=== PATIENT | female | born 1935 | race Caucasian/White ===

== ENCOUNTER 2024-04-06 12:10 | Outpatient (REF) | payer MEDICARE, SELFPAY | END 2024-04-06 12:11 | disposition home or self-care (01) | LOC: HO.BBR 12:10 | PROVIDERS: PCP Internal Medicine; Visit Provider Internal Medicine Hematology | DX: D45 Polycythemia vera (principal) | CPT/HCPCS: 85018; 99195 ==

== ENCOUNTER 2024-06-09 09:57 | Outpatient (REF) | payer MEDICARE, SELFPAY ==
--- OUTSIDE RECORDS SUMMARY | 2024-06-09 10:51 | XMS_ITS | Continuity of Care Document ---
Author Organization [facility] for [facility] Address [address] [place] [id number]- Support Name Relationship Address Phone ABDIRASHID SOLER Personal Relationship Unknown U navailable CHEVALIER, ABDIRASHID Personal Relationship Unknown U navailable CHEVALIER, CARLITO Personal Relationship Unknown Un available CHEVALIER, CARLITO Personal Relationship Unknown Un available CHEVALIER, CARLITO Personal Relationship Unknown Un available CHEVALIER, CARLITO Personal Relationship Unknown Un available CHEVALIER, CARLITO spouse Unknown Unavailable CHEVALIER, C CARLITO Personal Relationship Unknown Unavailable CHEVALIER, CARLITO Personal Relationship Unknown Un available CHEVALIER, C CARLITO Personal Relationship Unknown Unavailable CHEVALIER, C CARLITO Personal Relationship Unknown Unavailable CHEVALIER, C CARLITO Personal Relationship Unknown Unavailable CHEVALIER, C CARLITO Personal Relationship Unknown Unavailable CHEVALIER, C CARLITO Personal Relationship Unknown Unavailable CHEVALIER, C CARLITO Personal Relationship Unknown Unavailable CHEVALIER, C CARLITO Personal Relationship Unknown Unavailable CHEVALIER, CARLITO Personal Relationship Unknown Un available CHEVALIER, C CARLITO Personal Relationship Unknown Unavailable Care Team Providers Care Subscription Agent Name Role Phone Parris NEWTON, Sherron [id number] [address] [address] Discharge Disposition: A-D/C Home Attending Physician: Candy NEWTON(Hem/Onc), Fredy Archer Admitting Physician: Candy NEWTON(Hem/Onc), Fredy Archer Referring Physician: Rosamaria Go NP Encounter Type: Disch Recurring OP Allergies, Adverse Reactions, Alerts No Known Allergies Immunizations Given and Recorded Vaccine Date Status Refusal Reason influenza virus vaccine, inactivated 1 01/31/12 Gi kermit influenza virus vaccine, inactivated 04/07/06 Give n Influenza Virus Vaccine (oldterm) 2 10/18/08 Given Diphth-Tetanus Toxoids Adsorbed(oldterm) 11/25/06 Given Influenza Inactive (IM) (oldterm) 03/22/05 Given Pneumococcal Vaccine (oldterm) 11/15/03 Given diphtheria-tetanus toxoids (DT) 05/19/96 Given 1Admin Note: VIS:12/11/10 2Admin Note: VIM 11/15/05 [employer] Medications Aspir 81 Oral Enteric Coated Tablet 1 tablet = 81 mg, By Mouth, Daily, # 30 tablet, 0 Refills, Maintenance, 10/13/14 10:37:54 AM EDT, ECTablet Start Date: 10/13/14 Status: Ordered Quantity: 30.0 Unit: tablet Repeat number: 1 atenolol 50 mg oral tablet 50 mg, 1, tablet, By Mouth, Daily, # 90 tablet, Refills 1, Tot. Refills 1, Maintenance, 12/30/23 11:12:00 AM EDT, Route to Pharmacy Electronically, [facility] #[id number], 156.1, cm, 11/07/23 15:40:00 EDT, Height Start Date: 12/30/23 Status: Ordered Quantity: 90.0 Unit: tablet Repeat number: 2 Hydrea 500 mg oral capsule 1 capsule = 500 mg, By Mouth, Every Friday, Friday and Friday, for 90 days, # 39 capsule, 4 Refills, Acute 08/12/24 4:34:00 PM EDT, 05/20/23 4:34:00 PM EST, [facility] #[id number], Partial fill upon patient request if the prescription is for a schedule II opioid drug., 156.8, cm, 01/03/23 11:24:00 EDT, Height, 58.4, kg, 12/28/21 8:56:00 EDT, Dry Weight Start Date: 05/20/23 Stop Date: 08/12/24 Status: Ordered Quantity: 39.0 Unit: capsule Repeat number: 5 irbesartan 300 mg oral tablet 1 tablet = 300 mg, By Mouth, Daily, # 90 tablet, 1 Refills, Maintenance, 12/30/23 11:13:00 AM EDT, Tablet, [facility] #[id number], Partial fill upon patient request if the prescription is for a schedule II opioid drug., 156.1, cm, 11/07/23 15:40:00 EDT, Height Start Date: 12/30/23 Status: Ordered Quantity: 90.0 Unit: tablet Repeat number: 2 levothyroxine 75 mcg (0.075 mg) oral tablet See Instructions, TAKE ONE TABLET BY MOUTH ONCE DAILY, # 90 tablet, 1 Refills, 12/30/23 11:14:00 AM EDT, [facility] #[id number], 156.1, cm, 11/07/23 15:40:00 EDT, Height Start Date: 12/30/23 Status: Ordered Quantity: 90.0 Unit: tablet Repeat number: 2 pantoprazole 20 mg oral delayed release tablet 1 tablet = 20 mg, By Mouth, 2 times a day, # 180 tablet, 0 Refills, Maintenance, 08/13/23 10:19:00 AM EDT, rx resent; sent to [facility], 156.8, cm, 01/03/23 11:24:00 EDT, Height, 58.4, kg, 12/28/21 8:56:00 EDT, Dry Weight Start Date: 08/13/23 Status: Ordered Quantity: 180.0 Unit: tablet Repeat number: 1 Vitamin D3 1000 intl units oral capsule 1 capsule = 25 mcg, By Mouth, Daily, # 100 capsule, 0 Refills, Maintenance, 12/28/21 9:04:00 AM EDT,Capsule, Partial fill upon patient request if the prescription is for a schedule II opioid drug. 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 1scan at [facility] Vital Signs Most recent to oldest [Reference Range]: 1 Height 156.1 cm (03/30/24 9:23 AM) Weight 54.7 kg (03/30/24 9:23 AM) Oxygen Saturation [94-100 %] 100 % (03/30/24 9:23 AM) Pulse Rate [55-90 bpm] 71 bpm (03/30/24 9:23 AM) Body Mass Index [18.5-24.99 kg/m2] 22.45 kg/m2 (03/30/24 9:23 AM) Blood Pressure [90-138/55-84 mm Hg] 132/ 53mm Hg (03/30/24 9:23 AM) Temperature [96.8-100.4 DegF] 98.3 DegF (03/30/24 9:23 AM) Mode of Delivery (Oxygen) Room air (03/30/24 9:23 AM) Blood pressure sites Arm, left (03/30/24 9:23 AM) Temperature Route Oral (03/30/24 9:23 AM) Dry Weight 54.7 kg (03/30/24 9:23 AM) Weight Obtained Via Standing scale (03/30/24 9:23 AM) Dry Weight Obtained Via Standing scale (03/30/24 9:23 AM) Social History Social History Type Response Smoking Status Former smoker; Other : Quit ; entered on: 11/14/14 Sex Sex Representation Female (finding) Patient Care team information Care Team Personnel Name: Pam Sommer Position: [facility] Onco RN Member Role: Primary Care Nurse Name: Edwina Wilcox RN Position: [facility] Onco RN Member Role: Primary Care Nurse Name: Sherron Nye MD Position: [facility] Physician - Primary Care Member Role: PCP Address: [address] [place] [id number] Telecom: Name: Candy NEWTON(Hem/Onc)Fredy Position: [facility] Physician - Oncology Med Service: Hematology & Oncology Member Role: Admitting Physician Address: [address] [place] [address] for Cancer Care [facility] [place] [address]- [place] Telecom: Care Team Related Persons Name: CARLITO SOLER Insurance Providers Guarantor name: ABDIRASHID KARLENE Health Plan Information #: 2 Payer: MEDEX Member Number: [id number] Policy Number: NA Group Number: [id number] Health Plan Information #: 1 Payer: MEDICARE PART B OUTPT Member Number: [id number] Policy Number: NA Group Number: NA
== END 2024-06-09 09:58 | disposition home or self-care (01) ==
LOC: HO.BBR 09:57
PROVIDERS: PCP Internal Medicine; Visit Provider Internal Medicine Hematology
DX: D45 Polycythemia vera (principal)
CPT/HCPCS: 85014; 85018; 99195

== ENCOUNTER 2024-08-17 08:46 | Outpatient (REF) | payer MEDICARE, SELFPAY ==
--- OUTSIDE RECORDS SUMMARY | 2024-08-17 09:11 | XMS_ITS | Continuity of Care Document ---
Author Organization [facility] Address [address] [place] [address]- Support Name Relationship Address Phone ABDIRASHID SOLER [...] Relationship Unknown Unavailable Care Team Providers Care Chief Media Officer Name Role Phone Parris NEWTON, Sherron Primary Care Physician [phone] Encounter [facility] Date(s): 07/15/24 - 08/14/[address] [id number] Encounter Type: Triage Allergies, Adverse Reactions, Alerts No Known Allergies Immunizations Given and Recorded Vaccine Date Status Refusal Reason influenza virus vaccine, inactivated 1 01/31/12 Gi kermit influenza virus vaccine, inactivated 04/07/06 Give n Influenza Virus Vaccine (oldterm) 2 03/05/08 Given Diphth-Tetanus Toxoids Adsorbed(oldterm) 11/25/06 Given Influenza Inactive (IM) (oldterm) 03/22/05 Given Pneumococcal Vaccine (oldterm) 11/15/03 Given diphtheria-tetanus toxoids (DT) 1/1/97 Given 1Admin Note: VIS:12/11/10 2Admin Note: VIM [...] tablet, Refills 1, Tot. Refills 1, Maintenance, 07/15/24 1:04:00 PM EST, Route to Pharmacy Electronically, [facility] #[id number], 156.1, cm, 04/06/24 11:05:00 EST, Height, 54.7, kg, 03/30/24 9:23:00 EST, Dry Weight Start Date: 07/15/24 Status: Ordered Quantity: 90.0 Unit: tablet Repeat number: 2 Hydrea 500 mg oral capsule 1 capsule = 500 mg, By Mouth, Every Friday, Friday and Friday, for 90 days, # 39 capsule, 0 Refills, Physician Stop 02/02/25 5:03:00 PM EDT, 11/04/24 5:03:00 PM EDT, [facility] #[id number], Partial fill upon patient request if the prescription is for a schedule II opioid drug., 156.1, cm, 04/06/24 11:05:00 EST, Height, 54.7, kg, 03/30/24 9:23:00 EST, Dry Weight Start Date: 11/04/24 Stop Date: 02/02/25 Status: Ordered Quantity: 39.0 Unit: capsule Repeat number: 1 Hydrea 500 mg oral capsule 1 capsule = 500 mg, By Mouth, Every Friday, Friday and Friday, for 90 days, # 39 capsule, 0 Refills, Physician Stop 11/04/24 5:03:00 PM EDT, 08/06/24 5:03:00 PM EDT, [facility] #[id number], Partial fill upon patient request if the prescription is for a schedule II opioid drug., 156.1, cm, 04/06/24 11:05:00 EST, Height, 54.7, kg, 03/30/24 9:23:00 EST, Dry Weight Start Date: 08/06/24 Stop Date: 11/04/24 Status: Ordered Quantity: 39.0 Unit: capsule Repeat number: 1 hydroxyurea 500 mg oral capsule See Instructions, TAKE ONE CAPSULE BY MOUTH EVERY FRIDAY, FRIDAY, FRIDAY, # 39 capsule, 0 Refills, Maintenance, 08/02/24 1:06:00 PM EDT, [facility] #[id number], 156.1, cm, 04/06/24 11:05:00 EST, Height, 54.7, kg, 03/30/24 9:23:00 EST, Dry Weight Start Date: 08/02/24 Status: Ordered Quantity: 39.0 Unit: capsule Repeat number: 1 irbesartan 300 mg oral tablet 1 tablet, By Mouth, Daily, # 90 tablet, 1 Refills, Maintenance, 07/15/24 1:04:00 PM EST, [facility] #[id number], 156.1, cm, 04/06/24 11:05:00 EST, Height, 54.7, kg, 03/30/24 9:23:00 EST, Dry Weight Start Date: 07/15/24 Status: Ordered Quantity: 90.0 Unit: tablet Repeat number: 2 levothyroxine 75 mcg (0.075 mg) oral tablet 1 tablet, By Mouth, Daily, # 90 tablet, 1 Refills, Maintenance, 07/15/24 1:04:00 PM EST, [facility] #[id number], 156.1, cm, 04/06/24 11:05:00 EST, Height, 54.7, kg, 03/30/24 9:23:00 EST, Dry Weight Start Date: 07/15/24 Status: Ordered Quantity: 90.0 Unit: tablet Repeat number: 2 pantoprazole 20 mg oral delayed release tablet 1 tablet = 20 mg, By Mouth, 2 times a day, # 180 tablet, 0 Refills, Maintenance, 08/13/23 10:19:00 AM EDT, rx resent; sent to wrong pharmacy, 156.8, cm, 01/03/23 11:24:00 EDT, Height, [...] rubra vera Confirmed 2002 Active 1scan at [place] Social History Social History Type Response Smoking Status Former smoker; Other : Quit ; entered on: 11/14/14 Sex Sex Representation Female (finding) Patient Care team information Care Team Personnel Name: Pam Sommer Position: [facility] Onco RN Member Role: Primary Care Nurse Name: Edwina Wilcox RN Position: [facility] Onco RN Member Role: Primary Care Nurse Name: Sherron Nye MD Position: [facility] Physician - Primary Care Member Role: PCP Address: [address] [place] [id number] Telecom: Care Team Related Persons Name: CARLITO SOLER Insurance Providers Guarantor name: ABDIRASHID SOLER Health Plan Information #: 1 Payer: MEDICARE PART B OUTPT Member Number: NA Policy Number: NA Group Number: NA Health Plan Information #: 2 Payer: MEDEX Member Number: NA Policy Number: NA Group Number: NA
--- OUTSIDE RECORDS SUMMARY | 2024-08-17 09:11 | XMS_ITS ---
Author Organization [facility] Lakesha boswell Billing Info Address [address] [place] [id number] Care Team Providers Care Pest Control Technician Name Role Phone SOUTH BRAN Primary Care Provider Allergies No Known Allergies REASON FOR VISIT AWV, Discuss right hip and leg discomfort- for a couple weeks Medications Medication SIG (Take, Route, Frequency, Duration) Notes Start Date End Date Status Aspir-81 1 tab(s) Orally Daily Active Levothyroxine Sodium 75 MCG 1 capsule in the morning on an empty stomach Orally Daily Active Avapro 300 MG 1 tablet Orally Daily Active Atenolol 50 MG 1 tablet Orally Once a day Active Hydroxyurea 500 MG 1 capsule Orally Onc e a day for 30 day(s) 3x a week Active Pantoprazole Sodium 20 MG 1 tablet Orall y Once a day for 30 day(s) PRN Active Vitamin D 25 MCG (1000 UT) 1 tablet Oral ly Once a day for 30 day(s) Active Social History Tobacco Status: Question Answer Notes Patient is a non tobacco user Problems Problem Type SNOMED Code ICD Code Onset Dates Problem Status W/U Status Risk Notes Problem 130788392 BMI 21.0-21.9, adult (Z68.21) Active confirmed Problem 474275811 Encounter for subsequent annual wellness visit (AWV) in Medicare patient (Z00.00) Active confirmed Problem 564121846928002 Right hip pain (M25.551) Active confirmed Vital Signs Height 64 in 07/10/2023 Weight 123 lbs 07/10/2023 BMI 21.11 kg/m2 07/10/2023 Blood pressure systolic 140 mm Hg 07/10/19 24 Blood pressure diastolic 72 mm Hg 024 Temperature 97.5 degrees Fahrenheit 07/10/19 24 Heart Rate 73 /min 07/10/2023 Respiratory Rate 16 /min 07/10/2023 Oximetry 96 07/10/2023 Encounters Encounter Location Date Provider Diagnosis [id number] [facility] [address] [facility] [address] [place], [place] [id number] 07/10/2023 SOUTH BRAN BMI 21.0-21.9, adult Z68.21 ; Encounter for subsequent annual wellness visit (AWV) in Medicare patient Z00.00 ; Slow transit constipation K59.01 ; Essential hypertension I10 ; Acquired hypothyroidism E03.9 ; Gastroesophageal reflux disease without esophagitis K21.9 ; Polycythemia vera D45 ; Right hip pain M25.551 and Advance care planning Z71.89 Assessments Encounter Date Diagnosis (ICD Code) Assessment Notes Treatment Notes Treatment Clinical Notes Section Notes 07/10/2023 BMI 21.0-21.9, adult (ICD-10 - Z68.21) Body Mass Index: Care Instructions material was printed 07/10/2023 Encounter for subsequent annual wellness visit (AWV) in Medicare patient (ICD-10 - Z00.00) Well Visit, Over 65: Care Instructions material was printed 07/10/2023 Slow transit constipation (ICD-10 - K59.01) 07/10/2023 Essential hypertension (ICD-10 - I10) High Blood Pressure: Care Instructions material was printed 07/10/2023 Acquired hypothyroidism (ICD-10 - E03.9) Hypothyroidism: Care Instructions material was printed 07/10/2023 Gastroesophageal reflux disease without esophagitis (ICD-10 - K21.9) 07/10/2023 Polycythemia vera (ICD-10 - D45) 07/10/2023 Right hip pain (ICD-10 - M25.551) 07/10/2023 Advance care planning (ICD-10 - Z71.89) Obtained permission with patient to discuss their current condition and future medical care. Informed what to expect from a surrogate acting on their behalf. Discussed options with patient. Discussed importance of identifying a health care surrogate and be specific with treatments and circumstances. Review final documentation regularly and update accordingly. Discussed with patient for 16 minutes. Assessed patient's decision-making capacity before conclusion of conversation Plan Of Treatment Treatment Notes Assessment Notes BMI 21.0-21.9, adult Body Mass Index: Ca re Instructions material was printed Encounter for subsequent [facility] wellness visit (AWV) in Medicare patient Well Visit, Over 65: Care Instructions material was printed Essential hypertension High Blood Pressu re: Care Instructions material was printed Acquired hypothyroidism Hypothyroidism: Care Instructions material was printed Advance care planning Obtained permission with patient to discuss their current condition and future medical care. Informed what to expect from a surrogate acting on their behalf. Discussed options with patient. Discussed importance of identifying a health care surrogate and be specific with treatments and circumstances. Review final documentation regularly and update accordingly. Discussed with patient for 16 minutes. Assessed patient's decision-making capacity before conclusion of conversation Next Appt Details Follow Up: fall, Reason: Progress Notes * Edwin STANTONOB: [birth year] (87 yo F)Acc No.[id number]:07/10/2023 Patient:?Rosy STANTON Provider:?ADELA BRAN MD :1935???Age:87 Y???Sex:Female D ate:07/10/2023 ?N#:[id number] [facility] Subjective: * Chief Complaints: * ???AWV, Discuss right hip an d leg discomfort- for a couple weeks * HPI: ???Depression Screening:?PHQ-2 (2015 Edition)?Little interest or pleasure in doing things??Not at all ?Feeling down, depressed, or hopeless??Not at all ?Total Score?0 ?This pleasant 87-year-old patient presents for a WV. She is active.? She is having intermittent right hip pain. She has seen her Ortho past, she will call make the appointment.? Reviewed her labs from the waterproof bag sewer the CBC from 07/01/2023.? She will be returning to [place] new few months. Follow-up with all consultants in [place]. I will see you full to return. 16 minutes evaluation regarding advance care planning. Does not have living will healthcare surrogate. We have encouraged her do so proved full schedule a provided to medications reviewed. Continue low- cholesterol diet, exercise. * ROS:?Pertinent Positives and Negatives listed in HPI, and all other systems were reviewed and negative Pertinent Positives and Negatives listed in HPI, and all other systems were reviewed and negative. * Medical History:?? * Surgical History:?hysterecto my 1977Colonoscopy 2016 * Hospitalization/Major Diagno stic Procedure:?See Surgical Hx above * Family History:?Mother: dece ased 79 yrs, heart attack.?Father: 71 yrs, stroke.?Brother(s): 83 yrs, heart attack.?2 son(s) . .? * Social History:?Alcohol Use?Patient?uses alcohol ?Drinks per week:?2 ???Tobacco Status?Patient is?a non tobacco user ???Exercise: walking. ???Marital Status: . ???Illicit Drug Use?Patient/Family reports:?No illicit drug use ???Ambulatory Status?:?is independent * Medications:?TakingAspir-81 1 tab(s) Orally Daily Atenolol 50 MG Tablet 1 tablet Orally Once a day Avapro 300 MG Tablet 1 tablet Orally Daily Hydroxyurea 500 MG Capsule 1 capsule Orally Once a day , Notes to Pharmacist: 3x a weekLevothyroxine Sodium 75 MCG Tablet 1 capsule in the morning on an empty stomach Orally Daily Pantoprazole Sodium 20 MG Tablet Delayed Release 1 tablet Orally Once a day , Notes to Pharmacist: PRNVitamin D 25 MCG (1000 UT) Tablet 1 tablet Orally Once a day Medication List reviewed and reconciled with the patientTaking Aspir-81 1 tab(s) Orally Daily Taking Atenolol 50 MG Tablet 1 tablet Orally Once a day Taking Avapro 300 MG Tablet 1 tablet Orally Daily Taking Hydroxyurea 500 MG Capsule 1 capsule Orally Once a day , Notes to Pharmacist: 3x a weekTaking Levothyroxine Sodium 75 MCG Tablet 1 capsule in the morning on an empty stomach Orally Daily Taking Pantoprazole Sodium 20 MG Tablet Delayed Release 1 tablet Orally Once a day , Notes to Pharmacist: PRNTaking Vitamin D 25 MCG (1000 UT) Tablet 1 tablet Orally Once a day Medication List reviewed and reconciled with the patient * Allergies:?N.K.A.no[Allergie s Verified] Objective: * Vitals:?Ht: 64 in, Ht-cm: 16 2.56 cm, Wt: 123 lbs, Wt-k.79 kg, BMI:21.11, Weight Change: -1.4 lbs, Body Surface Area: 1.59, BP:140/72, Temp:97.5F, HR:73, Respiratory Rate:16, Oxygen sat %:96. * Examination: ???Internal Medicine : ?CONST:?Well developed and well nourished, NAD.?EYES:?PERRL, No conjunctival erythema, No scleral icterus, EOMI, Optic fundi normal.?ENMT:?Normal EAC and TM, No hearing deficit, Septum midline, Oral mucosa, dentition, gums, tonsils, soft palate and posterior pharynx within normal limits, Oral mucosa, dentition, gums, tonsils, soft palate and posterior pharynx within normal limits.?NECK:?Supple, Trachea midline, No carotid bruit, JVD flat, No thyromegaly, adenopathy..?CARDIO:?Regular rate and rhythm, Normal S1S2, No heave, rub, or murmur. No JVD @ 45 degrees..?RESP:?Symmetrical air movement, Resonant to percussion, Clear to auscultation..?GI:?Soft, Non-distended, Non-tender, No organomegaly, Bowel sounds present, No hernias. No abdominal pulsations or bruits.Femoral pulses intact and equal bilaterally..?EXT:?Negatine for clubbing, cyanosis and edema. +2 DP/ DT pulses. Negative Rae's sign.Palms and nails are normal..?MUSC:?Normal gait and posture, No bony abnormality or joint deformity.?SKIN:?No rash or skin lesions.?NEURO:?Alert and oriented x 3, Motor strength and reflexes symmetrical, No sensory impairment, Cranial nerves intact.?PSYCH:?Normal appearance and affect, Mood appropriate, No cognitive impairment. No auditory or visual hallucinations..?HEME:?No cervical, supraclavicular, axillary or inguinal lymphadenopathy. Negative for petechiae, prolonged bleeding or blood dyscrias.? Assessment: * Assessment: 1.?Encounter for subsequent annual wellness visit (AWV) in Medicare patient - Z00.00 (Primary)?2.?BMI 21.0-21.9, adult - Z68.21?3.?Slow transit constipation - K59.01?4. Essential hypertension - I10?5.?Acquired hypothyroidism - E03.9?6.?Gastroesophageal reflux disease without esophagitis - K21.9?7.?Polycythemia vera - D45?8.?Right hip pain - M25.551?9.?Advance care planning - Z71.89? Plan: * Treatment: 2.?BMI 21.0-21.9, adult? Notes: Body Mass Index: Care Instructions material was printed?? 3.?Essential hypertension? Notes: High Blood Pressure: Care Instructions material was printed?? 4.?Acquired hypothyroidism? Notes: Hypothyroidism: Care Instructions material was printed?? 5.?Advance care planning? Notes: Obtained permission with patient to discuss their current condition and future medical care. Informed what to expect from a surrogate acting on their behalf. Discussed options with patient. Discussed importance of identifying a health care surrogate and be specific with treatments and circumstances. Review final documentation regularly and update accordingly. Discussed with patient for 16 minutes. Assessed patient's decision-making capacity before conclusion of conversation?? * Procedure Codes:?1123F ACP D ISCUSS/DSCN MKR [id number] ANNUAL WELLNESS VST; PPS SUBSQT VST * Preventive Medicine:? ??[place] PAF (Patient Assessment Form):?Fall Risk Assessment?Increased Fall Risk factors:?No fall risk factors ?History Falls in Past Year:?One fall with injury in past year ?Date Screening Completed:?09/05/2022 ?Breast Cancer Screening (50-74 y/o, female, every 27 months)?Screening mammography completed:?No ?Colorectal Cancer Screening (45-75 y/o)?Colonoscopy Date (Every 10 years):?05/19/2016 per cristy- Dr. Martin ?Depression Screening?PHQ 2 Smart Form:?Completed 09/05/2022 ?Female?Pap and Pelvic Exam:?Hysterectomy ?Immunizations?COVID 19 Vaccination?Yes ??Quality Measures:?Weight Assessment?Normal BMI?Continue current weight management routine ??Advance Care Planning:?Advance Care Plan details:?Durable Power of Raschel Knitting Machine Operator for Healthcare (DPOAH)/Healthcare Surrogate:?Copy uploaded, Provided information on advance directives ?Living Will:?Copy uploaded ?Do Not Resuscitate (DNR) order:?other - see notes: Discussed the importance of DNR with patient ?Provider Orders for Life Sustaining Treatment (POLST):?other - see notes: Discussed the importance of POLST with patient ?Minutes spent with patient discussing advance care planning:?16 ??Medicare Health Risk Assessment Form:?Structured Questions?In the past 7 days how much pain have you felt??Some ?In the past 7 days did you need help from others for Laundry and houskeeping, banking, shopping, using the telephone, food preparation, transportation or taking your own medications??N ?In the past 7 days did you need help from others to perform everyday activities such as eating, getting dressed, grooming, bathing, walking or using the toilet??N ?Do you have problems with your vision??N ?Do you have hearing problems or wear hearing aid??Y ?Do you have balance problems??N ?Have you fallen in the last year??N ?Do you feel depressed or sad??N ?Do you feel anxious??Y ?Are you having problems with your memory??N ?Do you have a living will??N ?Have you named a Medical Power of Raschel Knitting Machine Operator??Y ?Do you drive a car??Y ?Do you wear a seat belt??Y ?Do you wear sunscreen??Y ?Do you have stairs in your home??N ?Are there throw rugs in your home??Y ?Does your home have good lighting??Y ?On an average day, how many servings of fruit do you eat??2 ?On an average day, how many servings of Dairy do you eat??2 ?On an average day, how many servings of Vegetables do you eat??2 ?On an average day, how many servings of fiber do you eat??1 ?In an average week, how many meals contain red meat (beef/pork)??2 ?In an average week, how many meals contain chicken??3 ?In an average week, how many meals contain fish??2 ?In an average week, how many meals contain fried foods??0 ?In an average week, how many meals were at a restaurant??0 ?Do you take vitamins or supplements such as Calcium??Y ?Vitamin D??Y ?Multivitamin??N ?Do you consume alcohol??Y ?How many drinks per day??0 ?How many drinks per week??2 ?Are you a smoker??N ?Have you smoked in the past??Y ?If you are a smoker, would you like to quit??Y ?Your last eye appointment was approximately?05/2019.?How often do you see the eye doctor??Every 2-3 years.?Provider Questions?Advanced Directive Discussed??Y ?Medications Reviewed??Y ?Aspirin Use Reviewed??Y ?Risk Factors for Depression/History of mood disorder reviewed??Y * Follow Up:?fall * * Sign off status: Completed true * Provider:?ADELA BRAN MD Date:?2023 Generated for Harvinder siu/Silvia/Walter on:?08/17/2024 09:11 AM EDT History and Physical Notes * HPI (History of Present Illness) Category Sub-Category Detail Notes Category Not es Depression Screening PHQ-2 (2015 Edition) Little interest or pleasure in doing things?: Not at all This pleasant 87-year-old patient presents for a WV. She is active. She is having intermittent right hip pain. She has seen her Ortho past, she will call make the appointment. Reviewed her labs from the waterproof bag sewer the CBC from 07/01/2023. She will be returning to [place] new few months. Follow-up with all consultants in [place]. I will see you full to return. 16 minutes evaluation regarding advance care planning. Does not have living will healthcare surrogate. We have encouraged her do so proved full schedule a provided to medications reviewed. Continue low-cholesterol diet, exercise. Feeling down, depressed, or hopeless?: N ot at all Total Score: 0 Examination Category Sub-Category Detail Notes Category Not es Internal Medicine CONST: Well developed and well nourished, NAD EYES: PERRL, No conjunctiv al erythema, No scleral icterus, EOMI, Optic fundi normal ENMT: Normal EAC and TM, N o hearing deficit, Septum midline, Oral mucosa, dentition, gums, tonsils, soft palate and posterior pharynx within normal limits, Oral mucosa, dentition, gums, tonsils, soft palate and posterior pharynx within normal limits NECK: Supple, Trachea midl ine, No carotid bruit, JVD flat, No thyromegaly, adenopathy. CARDIO: Regular rate and rhy thm, Normal S1S2, No heave, rub, or murmur. No JVD @ 45 degrees. RESP: Symmetrical air move ment, Resonant to percussion, Clear to auscultation. GI: Soft, Non-distended, Non-tender, No organomegaly, Bowel sounds present, No hernias. No abdominal pulsations or bruits.Femoral pulses intact and equal bilaterally. MALE : MUSC: Normal gait and post ure, No bony abnormality or joint deformity SKIN: No rash or skin lesi ons NEURO: Alert and oriented x 3, Motor strength and reflexes symmetrical, No sensory impairment, Cranial nerves intact PSYCH: Normal appearance an d affect, Mood appropriate, No cognitive impairment. No auditory or visual hallucinations. HEME: No cervical, supracl avicular, axillary or inguinal lymphadenopathy. Negative for petechiae, prolonged bleeding or blood dyscrias BREASTS: EXT: Negatine for clubbin g, cyanosis and edema. +2 DP/ DT pulses. Negative Rae's sign.Palms and nails are normal.
--- OUTSIDE RECORDS SUMMARY | 2024-08-17 09:11 | XMS_ITS | Patient Health Record ---
Author Organization [facility] Lakesha boswell Billing Info Address [address] [place], [place] [id number] Care Team Providers Care Reinsurance Accountant Name Role Phone SOUTH BRAN Primary Care Provider Allergies No Known Allergies Reason For Referral No Information Medications Medication SIG (Take, Route, Frequency, Duration) Notes Start Date End Date Status Aspir-81 1 tab(s) Orally Daily Active Levothyroxine Sodium 75 MCG 1 capsule in the morning on an empty stomach Orally Daily Active Avapro 300 MG 1 tablet Orally Daily Active Atenolol 50 MG 1 tablet Orally Once a day Active Pantoprazole Sodium 20 MG 1 tablet Orall y Once a day for 30 day(s) PRN Active Hydroxyurea 500 MG 1 capsule Orally Onc e a day for 30 day(s) 3x a week Active Vitamin D 25 MCG (1000 UT) 1 tablet Oral ly Once a day for 30 day(s) Active Social History Tobacco Status: Question Answer Notes Patient is a non tobacco user Problems Problem Type SNOMED Code ICD Code Onset Dates Problem Status W/U Status Risk Notes Problem 302485492 Polycythemia dereje a (D45) Active confirmed Problem 38229135 Slow transit constipation (K59.01) Active confirmed Problem 957030859 Body mass index [BMI] 21.0-21.9, adult (Z68.21) Active confirmed Problem 76945820 Essential hypertension (I10) Active confirmed Problem 543975198342163 Right hip pain (M25.551) Active confirmed Problem 047411292041047 Trochanteric bursitis of right hip (M70.61) Active confirmed Problem 057748733 Acquired hypothyroidism (E03.9) Active confirmed Problem 799284886 Gastroesophageal reflux disease without esophagitis (K21.9) Active confirmed Problem 650652607 BMI 21.0-21.9, adult (Z68.21) Active confirmed Problem 874083669 Encounter for annual wellness visit (AWV) in Medicare patient (Z00.00) Active confirmed Problem 268179223 Encounter for subsequent annual wellness visit (AWV) in Medicare patient (Z00.00) Active confirmed Plan Of Treatment No Information Insurance Providers Payer Name Payer Address Payer Phone Subscriber Number Group Number Insured Name Patient Relationship to Insured Coverage Start Date Coverage End Date [place]ICARE [place] PART B [address] [facility] [place] [id number] Rosy Benitez Self - patient is the insured 3 [employer] [facility] [place] PPO [address] [place], [place] [id number] Rosy Benitez Self - patient is the insured 3 Medical (General) History Medical History History ICD Code High blood pressure Heartburn Thyroid disease Barretts esophagus Poor Hearing Surgical History Surgery Date(Month/Year) hysterectomy 1976 Colonoscopy 2016 Hospitalization History Reason Date(Month/Year) See Surgical Hx above
--- OUTSIDE RECORDS SUMMARY | 2024-08-17 09:11 | XMS_ITS ---
Author Organization [facility]ha es Billing Info Address [address] [place] [address] Care Team Providers Care Window And Siding Craftsman Name Role Phone SOUTH BRAN Primary Care Provider REASON FOR VISIT 4 Month f/u Encounters Encounter Location Date Provider Diagnosis [id number] [address] [facility] [address] [place] [id number] 08/26/2023 SOUTH BRAN Plan Of Treatment No Information Progress Notes * Charles STANTONeDOB: [birth year] (88 yo F)Acc No.[id number]:08/26/2023 PROGRESS NOTE Patient:Rosy MCDONALD Provider:?ADELA BRAN MD :1935???Age:87 Y???Sex:Female D ate:08/26/2023 ?N#:[id number] [address] [facility] Subjective: * Chief Complaints: * ???1. 4 Month f/u. * Medical History:?? Objective: * Vitals:? Assessment: Plan: * Treatment: * Care Plan Details* * This progress note has not b een verified nor is it considered complete until locked and signed by the provider. Sign off status: Pending * Provider:?ADELA BRAN MD Date:?2023 Generated for Harvinder siu/Silvia/eTransmitting on:?08/17/2024 09:11 AM EDT
--- OUTSIDE RECORDS SUMMARY | 2024-08-17 09:11 | XMS_ITS ---
Author Organization [facility] Practice Address [address] [place] [address] Care Team Providers Care Carbon Printer Name Role Phone Juwan De La Torre D.O Primary Care Provider [phone] Leanne Hutchison [phone] REASON FOR VISIT possible urinary tract infection Encounters Encounter Location Date Provider Diagnosis [facility] [address] [facility] [address] [place] [address] 02/19/2023 Leanne Hutchison Plan Of Treatment No Information Progress Notes * Charles STANTONeDOB: [birth year] (88 yo F)Acc No.[id number]:02/19/2023 Progress Notes Patient:?Rosy STANTON Provider:?Leanne Hutchison APRN, FNP-C :1935???Age:87 Y???Sex:Female D ate:02/19/2023 [facility] [facility] [facility] Pcp:Juwan De La Torre D.O Subjective: * Chief Complaints: * ???1. Possible urinary tract infection. * Medical History:? Objective: * Vitals:? Assessment: Plan: * Treatment: * Care Plan Details* * Electronic signature of Celsa Hutchison on 08/17/2024 at 09:10 AM EDT Sign off status: Pending * Provider:?Leanne Hutchison APRN, FNP-C Da te:?02/19/2023 Generated for Harvinder siu/Silvia/eTransmitting on:?08/17/2024 09:10 AM EDT
--- OUTSIDE RECORDS SUMMARY | 2024-08-17 09:11 | XMS_ITS | Patient Health Record ---
Author Organization [facility] Address [address] [place] [address] [address] [place] [address] Care Team Providers Care Pocket Closer Name Role Phone Jack (RETIRED) Mendel NEWTON Primary Care Provide r Unavailable Bibi Hsu Unavailable [phone] Reason For Referral No Information Medications Medication SIG (Take, Route, Frequency, Duration) Notes Start Date End Date Status Omeprazole 20 MG 1 tablet Orally Once a day Active Levothyroxine Sodium 75 MCG 1 tablet on an empty stomach in the morning Orally Once a day Active Avapro 300 MG 1 tablet Orally Once a day Active Social History Tobacco Use: Social History Observation Description Date Details (start date - stop date) Former Smoker NA - NA Tobacco Use/Smoking Question Answer Notes Are you a former smoker How long has it been since you last smoked? > 10 years Alcohol Screen (Audit-C) Question Answer Notes Did you have a drink containing alcohol in the p ast year? 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) Active confirmed Problem Age-related osteoporosis (176593530) Age-related osteoporosis without current pathological fracture (M81.0) Active confirmed Problem Essential hypertension (86405049) Essential (primary) hypertension (I10) Active confirmed Problem Hypothyroidism (95190813) Hypothyroidism, unspecified (E03.9) Active confirmed Problem Polycythemia vera (983856447) Polycythemia vera (D45) Active confirmed Problem Gastro-esophageal reflux disease with esophagitis (794135850) Gastro-esophageal reflux disease with esophagitis (K21.0) Active confirmed Problem Gastro-esophageal reflux disease without esophagitis (301057585) Gastro-esophageal reflux disease without esophagitis (K21.9) Active confirmed Plan Of Treatment No Information Insurance Providers Payer Name Payer Address Payer Phone Subscriber Number Group Number Insured Name Patient Relationship to Insured Coverage Start Date Coverage End Date MEDICARE [address] JAMES COOPER [id number] ABDIRASHID ESCAMILLA Self - patient is the insured MEDEX [address] [place] [address] [id number] 1 ABDIRASHID ESCAMILLA Self - patient is the insured Medical (General) History Medical History History ICD Code Gastro-esophageal reflux disease with es ophagitis K21.0 Essential (primary) hypertension I10 Hypothyroidism, unspecified E03.9 Surgical History Surgery Date(Month/Year) KAJAL BSO for fibroids and endometriosis a ge 32 appendectomy Hospitalization History Reason Date(Month/Year) CHILD
--- OUTSIDE RECORDS SUMMARY | 2024-08-17 09:11 | XMS_ITS ---
Author Organization [facility] Practice Address [address] [place] [address] Care Team Providers Care Sas Developer Name Role Phone Juwan De La Torre D.O Primary Care Provider [phone] Tatiana Zaragoza Unavailable [phone] Allergies No Known Allergies REASON FOR VISIT possible urinary tract infection Medications Medication SIG (Take, Route, Frequency, Duration) Notes Start Date End Date Status Atenolol 50 MG 1 tablet Orally Once a day Active Ciprofloxacin HCl 500 MG 1 tablet Orally every 12 hrs for 5 days 05/13/2019 Active Ciprofloxacin HCl 500 MG 1 tablet Orally every 12 hrs for 5 days 02/20/2023 Active metroNIDAZOLE 500 MG 1 tablet Orally Thr ee times a day for 5 days 05/13/2019 Active Dicyclomine HCl 20 MG 1 tablet Orally Th ree times a day for 5 days 05/13/2019 Active Levothyroxine Sodium 75 MCG 1 tablet on an empty stomach in the morning Orally Once a day Active Aspir-81 Active Avapro 300 MG 1 tablet Orally Once a day for 30 day(s) Active Pantoprazole Sodium 20 MG 1 tablet Orall y Once a day for 30 day(s) Active Social History Tobacco Use: Social History Observation Description Date Details (start date - stop date) Never Smoker NA - NA Alcohol Question Answer Notes Did you have a drink containing alcohol in the p ast year? No Points 0 Interpretation Negative Smoking Question Answer Notes Are you a: never smoker Section Notes: former smoker, social drinke r, , retired Vital Signs Blood pressure systolic 150 mm Hg 02/21/20 23 Blood pressure diastolic 70 mm Hg 023 Temperature 97.0 degrees Fahrenheit 02/21/20 23 Height 65 in 02/20/2023 Weight 120 lbs 02/20/2023 BMI 19.97 kg/m2 02/20/2023 Heart Rate 66 /min 02/20/2023 Encounters Encounter Location Date Provider Diagnosis [facility] [address] [place] [address] 02/20/2023 Tatiana Zaragoza Dysuria R30.0 Assessments Encounter Date Diagnosis (ICD Code) Assessment Notes Treatment Notes Treatment Clinical Notes Section Notes 02/20/2023 Dysuria (ICD-10 - R30.0) Push fluids and empty bladder frequently. Take abx as directed. Avoid sugar consumption, synthetic undergarments, and wet clothing. Empty bladder after sexual intercourse. Follow up with [facility] or ER if symptoms worsen or if experiencing flank pain, N/V, confusion, tachycardia, dizziness, and hematuria. Plan Of Treatment Medication Medication Name Sig Start Date Stop Date Notes Ciprofloxacin HCl 500 MG 1 tablet Orally every 12 hrs for 5 days 02/20/2023 Treatment Notes Assessment Notes Dysuria Push fluids and empt y bladder frequently. Take abx as directed. Avoid sugar consumption, synthetic undergarments, and wet clothing. Empty bladder after sexual intercourse. Follow up with [facility] or ER if symptoms worsen or if experiencing flank pain, N/V, confusion, tachycardia, dizziness, and hematuria. Pending Test Test Name Order Date URINALYSIS, COMPLETE (IN-HOUSE) 02/21/20 23 Next Appt Details Follow Up: RTC as needed, Re ason: Progress Notes * Charles STANTONeDOB: [birth year] (87 yo F)Acc No.[id number]:02/20/2023 Patient:?Rosy STANTON Provider:?Juwan De La Torre D.O. :1935???Age:87 Y???Sex:Female D ate:02/20/2023 [facility] Pcp:Juwan De La Torre D.O Subjective: * Chief Complaints: * ???Possible urinary tract in fection * HPI: ???CCM Patient Consent:? SB: Patient presents today with complaints of urinary frequency every 2 hours and lower abdominal pain for 1 week. She denies any fevers, hematuria or flank pain. She reports she was lasted treated for UTI over 2 years ago. She travels back and forth from [place] every 6 months. 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 * ROS:?MD:?Refer to HPI?Please refer to HPI for pertinent positives.?Constitutional?pt denies fever cough vision change.?Eyes?Denies.?ENT?Denies hearing loss.?Cardiovascular?Denies cp sob.?Respiratory?Denies sob or cough.?Gastrointestinal?Denies abdominal pain diarrhea n/v.?Genitourinary?frequency, lower abd pain.?Neurological?Denies headache or muscle weakness.?Musculoskeletal?Denies muscle pain or weakness or joint pain.?Endo/Heme?Denies weakness hair loss.?Skin?Denies rash.? * Medical History:? * Surgical History:?Denies Pas t Surgical History * Hospitalization/Major Diagno stic Procedure:?Colonscopy 2016 * Family History:?Father: dece ased.?Mother: .?Paternal Grand Father: .?Paternal Grand Mother: .?Maternal Grand Father: .?Maternal Grand Mother: .?1 brother(s) - healthy. 2 son(s) - healthy. .? Father side Hx of HTN Mother Side Hx of CAD, heart attack. * Social History:?Tobacco Use:?Smoking?Are you a:?never smoker.?Drug/Alcohol:?Alcohol?Did you have a drink containing alcohol in the past year??No,?Points?0,?Interpretation?Negative.?former smoker, social drinker, , retired. * Medications:?TakingAtenolol 50 MG Tablet 1 tablet Orally Once a day Levothyroxine Sodium 75 MCG Tablet 1 tablet on an empty stomach in the morning Orally Once a day Aspir-81 Pantoprazole Sodium 20 MG Tablet Delayed Release 1 tablet Orally Once a day Avapro 300 MG Tablet 1 tablet Orally Once a day metroNIDAZOLE 500 MG Tablet 1 tablet Orally Three times a day Ciprofloxacin HCl 500 MG Tablet 1 tablet Orally every 12 hrs Dicyclomine HCl 20 MG Tablet 1 tablet Orally Three times a day Medication List reviewed and reconciled with the patientTaking Atenolol 50 MG Tablet 1 tablet Orally Once a day Taking Levothyroxine Sodium 75 MCG Tablet 1 tablet on an empty stomach in the morning Orally Once a day Taking Aspir-81 Taking Pantoprazole Sodium 20 MG Tablet Delayed Release 1 tablet Orally Once a day Taking Avapro 300 MG Tablet 1 tablet Orally Once a day Taking metroNIDAZOLE 500 MG Tablet 1 tablet Orally Three times a day Taking Ciprofloxacin HCl 500 MG Tablet 1 tablet Orally every 12 hrs Taking Dicyclomine HCl 20 MG Tablet 1 tablet Orally Three times a day Medication List reviewed and reconciled with the patient * Allergies:?N.K.D.A.no[Allerg ies Verified] Objective: * Vitals:?BP: 150/70, Temp: 97 .0, Ht: 65, Wt: 120, BMI: 19.97, SaO2: 98, HR: 66, Ht-cm: 165.1, Wt-k.43. * Examination: ???MD: ?General?pleasant, In no acute distress.?Eyes?Unremarkable.?Head/Neck?neck is supple, no lymphadenopthy.?ENT?unremarkable.?CV?Regular rate and rhythm, No murmurs, gallops, or rubs.?Respiratory?Lungs clear to auscultation b/l, No rales, ronchi, or wheezing..?Abdomen?Soft, non-tender to palpation, No masses palpable, No hepatomegaly.?Neuro/MS?nonfocal exam.?Skin?No rashes or sores, Normal.?Psych?Normal mood and affect, intact judgement.?Extremities?No clubbing, no edema.? Assessment: * Assessment: 1.?Dysuria - R30.0 (Primary) ? Plan: * Treatment: 2.?Others? Start Ciprofloxacin HCl Tablet, 500 MG, 1 tablet, Orally, every 12 hrs, 5 days, 10 Tablet, Refills 0.?? * Labs:? * ?Lab: URINALYSIS, COMPLE TE (IN-HOUSE) * Procedure Codes:?30515 UA W/ O MICRO, Modifiers: QW * Follow Up:?RTC as needed * Images: Care Plan Details* * Sign off status: Completed true * Provider:?Juwan Monroe.O. Date:? 023 Generated for Harvinder siu/Silvia/Karmasmitting on:?08/17/2024 09:11 AM EDT History and Physical Notes * Examination Category Sub-Category Detail Notes Category Not es MD General pleasant, In no acute distre ss Eyes Unremarkable Head/Neck neck is supple, no l ymphadenopthy ENT unremarkable CV Regular rate and rhy thm, No murmurs, gallops, or rubs Respiratory Lungs clear to auscu ltation b/l, No rales, ronchi, or wheezing. Abdomen Soft, non-tender to palpation, No masses palpable, No hepatomegaly Neuro/MS nonfocal exam Skin No rashes or sores, Normal Psych Normal mood and affe ct, intact judgement Extremities No clubbing, no lo a
--- OUTSIDE RECORDS SUMMARY | 2024-08-17 09:11 | XMS_ITS | Patient Health Record ---
Author Organization [facility] Practice Address [address] [place] [address] Care Team Providers Care Personal Banking Advisor Name Role Phone Juwan De La Torre D.O Primary Care Provider [phone] Allergies No Known Allergies Reason For Referral No Information Medications Medication SIG (Take, Route, Frequency, Duration) Notes Start Date End Date Status Levothyroxine Sodium 75 MCG 1 tablet on an empty stomach in the morning Orally Once a day Active Atenolol 50 MG 1 tablet Orally [...] a day for 5 days 05/13/2019 Active Aspir-81 Active Avapro 300 MG 1 [...] former smoker, social drinke r, , retired former smoker, social drinke r, , retired former smoker, social drinke r, , retired Plan Of Treatment Pending Test Test Name Order Date URINALYSIS, COMPLETE (IN-HOUSE) 02/21/20 23 Urine Culture, Routine 05/13/2019 Insurance Providers Payer Name Payer Address Payer Phone Subscriber Number Group Number Insured Name Patient Relationship to Insured Coverage Start Date Coverage End Date BCBS [address] [place] [address] [id number] Rosy Benitez Self - patient is the insured MEDICARE [address] [address] [place] [address] [id number] Rosy Benitez Self - patient is the insured Medical (General) History Medical History History ICD Code HTN High Blood Pressure undefined Surgical History Surgery Date(Month/Year) Hospitalization History Reason Date(Month/Year) Colonscopy 2017
--- OUTSIDE RECORDS SUMMARY | 2024-08-17 09:11 | XMS_ITS ---
Author Organization [facility] Lakesha es Billing Info Address [address] [place] [address] Care Team Providers Care Alignment Mechanic Name Role Phone SOUTH BRAN Primary Care Provider REASON FOR VISIT Follow Up Encounters Encounter Location Date Provider Diagnosis [id number] [address] [facility] [address] [place] [address] [id number] 05/17/2024 SOUTH BRAN Plan Of Treatment No Information Progress Notes * Charles STANTONeDOB: [birth year] (88 yo F)Acc No.[id number]:05/17/2024 PROGRESS NOTE Patient:Rosy MCDONALD Provider:?ADELA BRAN MD :1935???Age:88 Y???Sex:Female D ate:05/17/2024 ?N#:[id number] [address] [facility] Subjective: * Chief Complaints: * ???1. Follow Up. * Medical History:?? Objective: * Vitals:? Assessment: Plan: * Treatment: * Care Plan Details* * This progress note has not b een verified nor is it considered complete until locked and signed by the provider. Sign off status: Pending * Provider:?ADELA BRAN MD Date:?2023 Generated for Harvinder siu/Silvia/eTransmitting on:?08/17/2024 09:11 AM EDT
== END 2024-08-17 08:47 | disposition home or self-care (01) ==
LOC: HO.BBR 08:46
PROVIDERS: PCP Internal Medicine; Visit Provider Internal Medicine Hematology
DX: D45 Polycythemia vera (principal)
CPT/HCPCS: 85018; 99195

== ENCOUNTER 2024-12-10 08:03 | Outpatient (REF) | payer MEDICARE, SELFPAY ==
--- OUTSIDE RECORDS SUMMARY | 2024-12-10 08:05 | XMS_ITS | Patient Health Record ---
Author Organization [facility] Physician Lakesha boswell Billing Info Address [address] [place], [place] [address] Care Team Providers Care Vascular Ultrasound Technician Name Role Phone SOUTH BRAN Primary Care Provider Allergies No Known Allergies Reason For Referral No Information Medications Medication SIG (Take, Route, Frequency, Duration) Notes Start Date End Date Status Pantoprazole Sodium 20 MG 1 tablet Orally Once a day for 30 day(s) PRN Not-Taking Vitamin D 25 MCG (1000 UT) 1 tablet Orally Once a day for 30 day(s) Active Levothyroxine Sodium 75 MCG 1 capsule in the morning on an empty stomach Orally Daily Active Atenolol 50 MG 1 tablet Orally Once a day Active Hydroxyurea 500 MG 1 capsule Orally Once a day for 30 day(s) 3x a week Active Trazodone HCl 50 MG 1 tablet at bedtime as needed Orally Once a day for 30 days 09/22/2024 Active Aspir-81 1 tab(s) Orally Daily Active Avapro 300 MG 1 tablet Orally Daily Active Social History Tobacco Status: Question Answer Notes Patient is a non tobacco user Problems Problem Type SNOMED Code ICD Code Onset Dates Problem Status W/U Status Risk Notes Problem 098114719 Polycythemia dereje a (D45) Active confirmed Problem 9510848 Primary insomnia (F51.01) Active confirmed Problem 32409121 Slow transit constipation (K59.01) Active confirmed Problem 496571408 Body mass index [BMI] 20.0-20.9, adult (Z68.20) Active confirmed Problem 596590562 Body mass index [BMI] 21.0-21.9, adult (Z68.21) Active confirmed Problem 60193841 Essential hypertension (I10) Active confirmed Problem 530049621588889 Right hip pain (M25.551) Active confirmed Problem 703285224446082 Trochanteric bursitis of right hip (M70.61) Active confirmed Problem 842916697 Acquired hypothyroidism (E03.9) Active confirmed Problem 641618341 Gastroesophageal reflux disease without esophagitis (K21.9) Active confirmed Problem 668472850 Advance care planning (Z71.89) Active confirmed Problem 140587054 BMI 21.0-21.9, adult (Z68.21) Active confirmed Problem 309306852 Encounter for annual wellness visit (AWV) in Medicare patient (Z00.00) Active confirmed Problem 956859717 Encounter for subsequent annual wellness visit (AWV) in Medicare patient (Z00.00) Active confirmed Vital Signs Heart Rate 65 /min 09/22/2024 Temperature 98.7 degrees Fahrenheit 09/22/2024 Respiratory Rate 16 /min 09/22/2024 Oximetry 98 09/22/2024 Blood pressure diastolic 76 mm Hg 09/22/2024 Height 64 in 09/22/2024 Blood pressure systolic 128 mm Hg 09/22/2024 Weight 119 lbs 09/22/2024 BMI 20.42 kg/m2 09/22/2024 Encounters Encounter Location Date Provider Diagnosis [id number] [address] [place] [address] [address] [place] [place] [address] [id number] 09/22/2024 SOUTH BRAN Slow transit constipation K59.01 ; Primary insomnia F51.01 ; Essential hypertension I10 ; Acquired hypothyroidism E03.9 ; Gastroesophageal reflux disease without esophagitis K21.9 ; Polycythemia vera D45 ; Right hip pain M25.551 and Body mass index [BMI] 20.0-20.9, adult Z68.20 Assessments Encounter Date Diagnosis (ICD Code) Assessment Notes Treatment Notes Treatment Clinical Notes Section Notes 09/22/2024 Slow transit constipation (ICD-10 - K59.01) Constipation: Care Instructions material was printed 09/22/2024 Primary insomnia (ICD-10 - F51.01) Insomnia: Care Instructions material was printed 09/22/2024 Essential hypertension (ICD-10 - I10) High Blood Pressure: Care Instructions material was printed 09/22/2024 Acquired hypothyroidism (ICD-10 - E03.9) Hypothyroidism: Care Instructions material was printed 09/22/2024 Gastroesophageal reflux disease without esophagitis (ICD-10 - K21.9) Gastroesophageal Reflux Disease (GERD): Care Instructions material was printed 09/22/2024 Polycythemia vera (ICD-10 - D45) 09/22/2024 Right hip pain (ICD-10 - M25.551) 09/22/2024 Body mass index [BMI] 20.0-20.9, adult (ICD-10 - Z68.20) Body Mass Index: Care Instructions material was printed Plan Of Treatment No Information Insurance Providers Payer Name Payer Address Payer Phone Subscriber Number Group Number Insured Name Patient Relationship to Insured Coverage Start Date Coverage End Date MEDICARE [place] PART B [address] [facility] BREANNA CAMACHO [id number] Rosy Benitez Self - patient is the insured 3 BCBSFL OOS HMO [place] PPO [address] [place], [place] [address] [phone] [id number] 1 Rosy Benitez Self - patient is the insured 3 Medical (General) History Medical History History ICD Code High blood pressure Heartburn Thyroid disease Barretts esophagus Poor Hearing Surgical History Surgery Date(Month/Year) Colonoscopy 2017 hysterectomy 1977 Hospitalization History Reason Date(Month/Year) See Surgical Hx above
--- OUTSIDE RECORDS SUMMARY | 2024-12-10 08:05 | XMS_ITS | Patient Health Record ---
Author Organization [facility] Address [address] [place] [address] Care Team Providers Care Auxiliary Equipment Tender Name Role Phone Roque Fuentes Unavailable [phone] Reason For Referral No Information Medications Medication SIG (Take, Route, Frequency, Duration) Notes Start Date End Date Status Atenolol 50 MG 1 tablet Orally Once a day Active Avapro 300 MG 1 tablet Orally Once a day Active Levothyroxine Sodium 75 MCG 1 tablet on an empty stomach in the morning Orally Once a day Active Pantoprazole Sodium *please revi ew for potential update for e-prescription and drug interaction check* Active Aspirin *please review f or potential update for e-prescription and drug interaction check* Active Aspirin *please review f or potential update for e-prescription and drug interaction check* Active Pantoprazole Sodium *please revi ew for potential update for e-prescription and drug interaction check* Active Problems Problem Type SNOMED Code ICD Code Onset Dates Problem Status W/U Status Risk Notes Problem Left upper quadrant pain (316156942) Left upper quadrant pain (R10.12) Active confirmed Problem Gastro-esophageal reflux disease without esophagitis (250007382) Gastro-esophagea l reflux disease without esophagitis (K21.9) Active confirmed Problem History of polyp of colon (situation) (207240899) Personal history of colonic polyps (Z86.010) Active confirmed Problem Abnormal weight loss (521302266) Abnormal weight loss (R63.4) Active confirmed Problem Valencia's esophagus (098049553) 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) Active confirmed Problem Cholelithiasis without obstruction (67615609) Calculus of gallbladder without cholecystitis without obstruction (K80.20) Active confirmed Problem Gallstone (002612288) gallstone (574.80) Active confirmed Plan Of Treatment No Information Insurance Providers Payer Name Payer Address Payer Phone Subscriber Number Group Number Insured Name Patient Relationship to Insured Coverage Start Date Coverage End Date MEDICARE [address] Part B Claims and Claims [place] [phone] [id number] Rosy Benitez Self - patient is the insured MEDICARE SUPPLEMENT [address] [place] [address] [id number] Rosy Benitez Self - patient is the insured Medical (General) History Medical History History ICD Code High Blood Pressure Gerd Surgical History Surgery Date(Month/Year) Hysterectomy
--- OUTSIDE RECORDS SUMMARY | 2024-12-10 08:05 | XMS_ITS | Patient Health Record ---
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) Active confirmed Problem Age-related osteoporosis (455748042) Age-related osteoporosis without current pathological fracture (M81.0) Active confirmed Problem Essential (primary) hypertension (I10) Active confirmed Problem Hypothyroidism (98055434) Hypothyroidism, unspecified (E03.9) Active confirmed Problem Polycythemia vera (902200102) Polycythemia vera (D45) Active confirmed Problem Gastro-esophageal reflux disease with esophagitis (539248263) Gastro-esophageal reflux disease with esophagitis (K21.0) Active confirmed Problem Gastro-esophageal reflux disease without esophagitis (837789516) Gastro-esophageal reflux disease without esophagitis (K21.9) Active confirmed Plan Of Treatment No Information Insurance Providers Payer Name Payer Address Payer Phone Subscriber Number Group Number Insured Name Patient Relationship to Insured Coverage Start Date Coverage End Date MEDICARE [address] JAMES COOPER [id number] ABDIRASHID ESCAMILLA Self - patient is the insured MEDEX [address] [place] [address] [id number] ABDIRASHID ESCAMILLA Self - patient is the insured Medical (General) History Medical History History ICD Code Gastro-esophageal reflux disease with es ophagitis K21.0 Essential (primary) hypertension I10 Hypothyroidism, unspecified E03.9 Surgical History Surgery Date(Month/Year) KAJAL BSO for fibroids and endometriosis a ge 32 appendectomy Hospitalization History Reason Date(Month/Year) CHILD
--- OUTSIDE RECORDS SUMMARY | 2024-12-10 08:06 | XMS_ITS | Patient Health Record ---
Author Organization [facility] Practice Address [address] [place] [address] Care Team Providers Care Multi Share Program Coordinator Name Role Phone Juwan De La Torre D.O Primary Care Provider Allergies No Known Allergies [...] End Date BCBS [address] [place] [address] [id number] Rosy Benitez Self - patient is the insured MEDICARE [address] [address] [place] [address] [phone] [id number] Rosy Benitez Self - patient is the insured Medical (General) History Medical History History ICD Code HTN High Blood Pressure undefined Surgical History Surgery Date(Month/Year) Hospitalization History Reason Date(Month/Year) Colonscopy 2017
== END 2024-12-10 08:04 | disposition home or self-care (01) ==
LOC: HO.BBR 08:03
PROVIDERS: PCP Internal Medicine; Visit Provider Internal Medicine Hematology
DX: D45 Polycythemia vera (principal)
CPT/HCPCS: 85018; 99195